=== PATIENT | male | born 1985 | race Caucasian/White ===

== ENCOUNTER 2019-10-03 21:48 | Emergency (ER) | payer MEDICAID, OTHER ==
[~2019-10-03] VITALS: Ht 182.9 cm; Wt 90.9 kg
[2019-10-03] MEDS ORDERED: KETOROLAC 60 MG/2 ML VIAL IM ONE (22:15)
--- NOTE | 2019-10-03 22:18 | ED GI ---
General Chief Complaint: Chest Wall Stated Complaint: RT SIDED PAIN Source of Information: Patient Exam Limitations: No Limitations History of Present Illness Date Seen by Provider: Oct 03, 2019 Time Seen by Provider: 22:05 Initial Comments Presents w onset of pain Right upper abdomen and Right chest just prior to arrival. Pain is sharp and comes and goes. NO nausea, vomiting or diarrhea. Denies constipation. Denies fever, chills, or loss of appetite. states Hx of similar "pain for the past 10yrs.....all over his body" that comes and goes. Allergies and Home Medications Allergies Coded Allergies: No Known Allergies (Verified Allergy, Unknown, 10/03/19) Patient Home Medication List Home Medication List Reviewed: Yes Review of Systems Review of Systems Constitutional: see HPI; No dizziness, No fever, No malaise, No weakness Respiratory: See HPI; Denies Cough, Denies Shortness of Air, Denies Stridor, Denies Wheezing Cardiovascular: See HPI, Chest Pain Gastrointestinal: See HPI; Denies Abdomen Distended; Abdominal Pain; Denies Constipated, Denies Diarrhea, Denies Difficulty Swallowing, Denies Nausea, Denies Poor Appetite, Denies Poor Fluid Intake, Denies Vomiting Genitourinary: Denies Frequency, Denies Flank Pain, Denies Hematuria, Denies Pain, Denies Urgency Musculoskeletal: No back pain, No joint pain, No muscle pain, No muscle stiffness, No muscle cramps Skin: No change in color, No rash Past Mtrmexh-Cxhfem-Rkgbbm Hx Past Med/Social Hx: Reviewed Nursing Past Med/Soc Hx Patient Social History Alcohol Use: Denies Use Recreational Drug Use: No Smoking Status: Never a Smoker 2nd Hand Smoke Exposure: No Recent Foreign Travel: No Contact w/Someone Who Travel: No Recent Hopitalizations: No Physical Abuse: No Sexual Abuse: No Mistreated: No Fear: No Seasonal Allergies Seasonal Allergies: No Past Medical History Surgeries: Yes Orthopedic Respiratory: No Cardiac: No Neurological: No Genitourinary: No Gastrointestinal: No Musculoskeletal: No Endocrine: No HEENT: No Cancer: No Psychosocial: No Integumentary: No Blood Disorders: No Physical Exam Vital Signs Vital Signs - First Documented 10/03/19 22:08 Temp 36.8 Pulse 91 Resp 20 B/P (MAP) 124/82 (96) O2 Delivery Room Air Capillary Refill : Height/Weight/BMI Height: '" Weight: lbs. oz. kg; BMI Method: General Appearance: WD/WN, no apparent distress Respiratory: chest non-tender, lungs clear, normal breath sounds, no respiratory distress, no accessory muscle use Cardiovascular: regular rate, rhythm, no edema, no gallop, no JVD, no murmur Gastrointestinal: normal bowel sounds, soft, no organomegaly, no pulsatile mass; No abnormal bowel sounds, No distended, No guarding, No rebound; tenderness (epigastric, RUQ and R flank); No hernia, No mass, No hepatomegaly, No spleenomegaly Extremities: normal range of motion, non-tender, normal inspection, no pedal edema, no calf tenderness Back: normal inspection, no CVA tenderness, no vertebral tenderness; No muscle spasm, No vertebral tenderness Skin: normal color, warm/dry Progress/Results/Core Measures Results/Orders Lab Results Laboratory Tests Test 10/03/19 22:20 Range/Units White Blood Count 8.9 4.3-11.0 10^3/uL Red Blood Count 5.10 4.35-5.85 10^6/uL Hemoglobin 15.1 13.3-17.7 G/DL Hematocrit 45 40-54 % Mean Corpuscular Volume 88 80-99 FL Mean Corpuscular Hemoglobin 30 25-34 PG Mean Corpuscular Hemoglobin Concent 34 32-36 G/DL Red Cell Distribution Width 13.2 10.0-14.5 % Platelet Count 257 130-400 10^3/uL Mean Platelet Volume 10.3 7.4-10.4 FL Neutrophils (%) (Auto) 58 42-75 % Lymphocytes (%) (Auto) 34 12-44 % Monocytes (%) (Auto) 5 0-12 % Eosinophils (%) (Auto) 2 0-10 % Basophils (%) (Auto) 1 0-10 % Neutrophils # (Auto) 5.2 1.8-7.8 X 10^3 Lymphocytes # (Auto) 3.0 1.0-4.0 X 10^3 Monocytes # (Auto) 0.4 0.0-1.0 X 10^3 Eosinophils # (Auto) 0.2 0.0-0.3 10^3/uL Basophils # (Auto) 0.1 0.0-0.1 10^3/uL My Orders Orders - ROVENSTINE,HERMINIA L DO Abdomen Flat & Upright/Decub (10/03/19 22:09) Cbc With Automated Diff (10/03/19 22:09) Comprehensive Metabolic Panel (10/03/19 22:09) Urinalysis (10/03/19 22:09) Chest 1 View Ap/Pa Only (10/03/19 22:09) Ketorolac Injection (Toradol Injection) (10/03/19 22:15) Medications Given in ED Current Medications Medications Dose Ordered Sig/Isra Route Start Time Stop Time Status Last Admin Dose Admin Ketorolac Tromethamine 60 mg ONCE ONCE IM 10/03/19 22:15 10/03/19 22:16 DC 10/03/19 22:19 60 MG Vital Signs/I&O 10/03/19 22:08 Temp 36.8 Pulse 91 Resp 20 B/P (MAP) 124/82 (96) O2 Delivery Room Air Departure Impression Primary Impression: Abdominal pain Qualified Codes: R10.10 - Upper abdominal pain, unspecified Additional Impression: Constipation Qualified Codes: K59.00 - Constipation, unspecified Disposition: 01 HOME, SELF-CARE Condition: Stable Departure-Patient Inst. Referrals: NO,LOCAL PHYSICIAN (PCP) Primary Care Physician [facility] [place] Patient Instructions: Acute Abdomen (Belly Pain), Adult (DC), Constipation, Adult (DC) Scripts Magnesium Citrate (Magnesium Citrate) 296 Ml Solution 296 ML PO ONCE, #1 EA Prov: HERMINIA STALLWORTH DO 10/03/19 HERMINIA STALLWORTH DO Oct 03, 2019 22:18 POS
[2019-10-03 22:45] LABS: BASOPHILS % (AUTO) 1 % (0-10); EOSINOPHILS % (AUTO) 2 % (0-10); HEMATOCRIT 45 % (40-54); HEMOGLOBIN 15.1 G/DL (13.3-17.7); LYMPHOCYTES % (AUTO) 34 % (12-44); MEAN CORPUSCULAR HEMOGLOBIN 30 PG (25-34); MEAN CORPUSCULAR HGB CONC 34 G/DL (32-36); MEAN CORPUSCULAR VOLUME 88 FL (80-99); MEAN PLATELET VOLUME 10.3 FL (7.4-10.4); MONOCYTES % (AUTO) 5 % (0-12); NEUTROPHILS % (AUTO) 58 % (42-75); PLATELET COUNT 257 10^3/uL (130-400); RED CELL DISTRIBUTION WIDTH 13.2 % (10.0-14.5); WHITE BLOOD COUNT 8.9 10^3/uL (4.3-11.0)
[2019-10-03 22:46] LABS: BASOPHILS # (AUTO) 0.1 10^3/uL (0.0-0.1); EOSINOPHILS # (AUTO) 0.2 10^3/uL (0.0-0.3); MONOCYTES # (AUTO) 0.4 X 10^3 (0.0-1.0); NEUTROPHILS # (AUTO) 5.2 X 10^3 (1.8-7.8)
[2019-10-03 22:48] LABS: BUN/CREATININE RATIO 16; CALCIUM 9.4 MG/DL (8.5-10.1); CARBON DIOXIDE 23 MMOL/L (21-32); CHLORIDE 104 MMOL/L (98-107); CREATININE SERUM 0.74 MG/DL (0.60-1.30); GFR ESTIMATED > 60; GLUCOSE 133 MG/DL (70-105); POTASSIUM 3.6 MMOL/L (3.6-5.0); SODIUM 140 MMOL/L (135-145)
[2019-10-03 22:49] LABS: ALANINE AMINOTRANSFERASE 51 U/L (0-55); ALBUMIN 4.3 GM/DL (3.2-4.5); ALKALINE PHOSPHATASE 91 U/L (40-136); BILIRUBIN,TOTAL 0.4 MG/DL (0.1-1.0); TOTAL PROTEIN 7.2 GM/DL (6.4-8.2)
[2019-10-03] MEDS ORDERED: MAGN296S50 PO (22:51)
[2019-10-03 22:57] VITALS: BP 124/82
--- NOTE | 2019-10-04 07:37 | Diagnostic Imaging Report ---
INDICATION: Pain FINDINGS: The heart, lungs, pleura and chest wall radiographically unremarkable. IMPRESSION: Negative Dictated by: Dictated on workstation # [id number]
--- NOTE | 2019-10-04 07:40 | Diagnostic Imaging Report ---
Indication: Pain. Findings: Bowel gas pattern unremarkable. No suspicious calcifications. No acute abnormality. Impression: Unremarkable abdominal radiographs. Dictated by: Dictated on workstation # [id number]
== END 2019-10-03 22:57 | disposition home or self-care (01) ==
LOC: ER FS 21:54
DX: K59.00 Constipation, unspecified (principal)
CPT/HCPCS: 36415; 71045; 74019; 80053; 85025

== ENCOUNTER 2019-12-06 14:30 | Emergency (ER) | payer BC, MEDICAID ==
[~2019-12-06] VITALS: Ht 182.8 cm; Wt 95.4 kg
[~2019-12-06 14:30] MED LIST: MAGN296S50 PO
--- NOTE | 2019-12-06 14:46 | ED Neck-Back Pain/Injury ---
General Chief Complaint: Head/Cervical Problems Stated Complaint: HEAD/NECK INJ Source of Information: Patient Exam Limitations: No Limitations History of Present Illness Date Seen by Provider: Dec 06, 2019 Time Seen by Provider: 14:44 Initial Comments To ER with head/neck injury. just delivered a baby, he was upstairs and taking some stuff out of the car. He stood up and hit the very top midline of his head on the car door frame. There was no loss of consciousness, he had a goose egg, some slight dizziness but states that he usually has dizziness because of some ongoing medical problems. His biggest concern is that he heard a popping sensation in the right side of his neck, he did fall to the ground but h as no paresthesias or numbness to any part of his body. Location: C-Spine Timing/Duration: 1/2 Hour Severity: Mild Pain/Injury Location: None Associated Symptoms: denies symptoms Allergies and Home Medications Allergies Coded Allergies: hydrocodone (Verified Allergy, Unknown, 12/06/19) burning Home Medications Magnesium Citrate 296 Ml Solution, 296 ML PO ONCE Prescribed by: HERMINIA STALLWORTH on 10/03/19 4235 Patient Home Medication List Home Medication List Reviewed: Yes Review of Systems Constitutional: see HPI EENTM: see HPI Respiratory: no symptoms reported Cardiovascular: no symptoms reported Genitourinary: no symptoms reported Musculoskeletal: see HPI Skin: no symptoms reported Psychiatric/Neurological: No Symptoms Reported Past Kothozv-Yulemk-Wtqkyg Hx Patient Social History 2nd Hand Smoke Exposure: No Recent Hopitalizations: No Seasonal Allergies Seasonal Allergies: No Past Medical History Surgeries: Yes Orthopedic Respiratory: No Cardiac: No Neurological: No Genitourinary: No Gastrointestinal: No Musculoskeletal: No Endocrine: No HEENT: No Cancer: No Psychosocial: No Integumentary: No Blood Disorders: No Physical Exam Vital Signs Vital Signs - First Documented 12/06/19 14:33 Pulse 92 Resp 17 B/P (MAP) 130/97 (108) Pulse Ox 97 O2 Delivery Room Air Capillary Refill : Height, Weight, BMI Height: '" Weight: lbs. oz. kg; 27.00 BMI Method: General Appearance: No Apparent Distress, WD/WN HEENT: PERRL/EOMI, TMs Normal Respiratory: No Accessory Muscle Use, No Respiratory Distress Gastrointestinal: Non Tender, Soft Extremity: Normal Capillary Refill, Normal Inspection Neurologic/Psychiatric: Alert, Oriented x3 Skin: Normal Color, Warm/Dry Progress/Results/Core Measures Results/Orders My Orders Orders - BRIGETTE HANSON APRN Ct Cervical Spine Wo (12/06/19 14:43) Vital Signs/I&O 12/06/19 14:33 Pulse 92 Resp 17 B/P (MAP) 130/97 (108) Pulse Ox 97 O2 Delivery Room Air Departure Impression Primary Impression: Minor head injury without loss of consciousness Qualified Codes: S09.90XA - Unspecified injury of head, initial encounter Additional Impression: Cervical strain Qualified Codes: S16.1XXA - Strain of muscle, fascia and tendon at neck level, initial encounter Disposition: HOME, SELF-CARE Condition: Stable Departure-Patient Inst. Decision time for Depature: 15:08 Referrals: NO,LOCAL PHYSICIAN (PCP/Family) Primary Care Physician Patient Instructions: Cervical Muscle Strain (DC) Add. Discharge Instructions: 1. Return to ER for any concerns 2. Follow-up with your doctor next week. Tylenol and Motrin for pain. 3. All discharge instructions reviewed with patient and/or family. Voiced understanding. BRIGETTE HANSON APRN Dec 06, 2019 14:46
--- NOTE | 2019-12-06 15:08 | Diagnostic Imaging Report ---
PROCEDURE: CT cervical spine without contrast. INDICATION: Head injury and neck pain. TECHNIQUE: Multiple contiguous axial images were obtained through the cervical spine without the use of intravenous contrast. Sagittal and coronal reformations were then performed. Auto Exposure Controls were utilized during the CT exam to meet ALARA standards for radiation dose reduction. FINDINGS: The cervical curvature and alignment are within normal limits. The vertebral body heights and disc spaces are maintained without evidence of fracture or subluxation. There is no paraspinous hematoma. There are prominent deep cervical lymph nodes, bilaterally. IMPRESSION: No CT evidence of acute cervical spinal abnormality. Dictated by: Dictated on workstation # [id number]
[2019-12-06 15:16] VITALS: BP 112/70
== END 2019-12-06 15:16 | disposition home or self-care (01) ==
LOC: EDUNIT# 14:30 → ER 14:31
DX: S09.90XA Unspecified injury of head, initial encounter (principal); S16.1XXA Strain of muscle, fascia and tendon at neck level, initial encounter; Z88.5 Allergy status to narcotic agent; W22.8XXA Striking against or struck by other objects, initial encounter
CPT/HCPCS: 72125

== ENCOUNTER 2021-07-18 22:38 | Emergency (ER) | payer BC, MEDICAID ==
[~2021-07-18 22:38] MED LIST changes: -MAGN296S50 PO; +MAGN296S71 PO
--- OUTSIDE RECORDS SUMMARY | 2021-07-18 22:43 | XMS REPORT | Clinical Summary ---
Author Author [facility] Organization [facility] Address Unknown Phone Unavailable Care Team Providers Care Ice Cream Vendor Name Role Phone No Pcp, Na PCP Unavailable Source Comments Some departments are not documenting in the electronic medical record. If you d o not see the information that you expected, contact Release of Information in [facility] Information Management department at [phone] for further assistan ce in locating additional records.[facility] Allergies Comments Active Allergy Reactions Severity Noted Date Hydrocodone NAUSEA ONLY Low 08/10/2018 Medications End Date Status Medication Sig Dispensed Refills Start Date Active acetaminophen (TYLENOL) Take two 90 tablet 0 325 mg tabletIndications: tablets by 8 pain mouth every 4 hours as needed. Active oxyCODONE (ROXICODONE, Take one 60 tablet 0 OXY-IR) 5 mg tablet tablet to two 8 tablets by mouth every 4 hours as needed Active docusate (COLACE) 100 mg Take one 180 capsule 3 1 capsule capsule by 8 mouth twice daily. Active ondansetron (ZOFRAN ODT) Dissolve one 30 tablet 0 4 mg rapid dissolve tablet by 8 tabletIndications: mouth every 6 prevention of hours as post-operative nausea and needed for vomiting Nausea or Vomiting. Place on tongue to dissolve. Active Problems Problem Noted Date Dislocation of carpometacarpal joint of right hand 1 10/18/2017 Hand fracture 08/10/2018 Medical History Medical History Date Comments Asthma sports enduced Social History Date Tobacco Use Types Packs/Day Years Used Quit: 2017 Former Smoker Cigarettes Smokeless Tobacco: Never Used Comments Alcohol Use Standard Drinks/Week Yes 7 (1 standard drink = 0.6 o z pure alcohol) Sex Assigned at Date Recorded Not on file Last Filed Vital Signs Reading Time Taken Comments Vital Sign 141/85 08/18/2018 11:31 AM CDT Blood Pressure 79 08/18/2018 11:31 AM CDT Pulse 36.8 C (98.2 F) 08/13/2018 10:29 AM CDT Temperature - - Respiratory Rate 98% 08/13/2018 3:01 PM CDT Oxygen Saturation - - Inhaled Oxygen Concentration 106.6 kg (235 lb) 09/13/2018 12:53 PM [facility] REP Weight 180.3 cm (5' 10.98") 09/13/2018 12:53 PM [facility] REP Height 32.79 09/13/2018 12:53 PM [facility] REP Body Mass Index Plan of Treatment Health Maintenance Due Date Last Done Comments HIV SCREENING 2002 DTAP/TDAP VACCINES (1 - 2005 Tdap) HEPATITIS C SCREENING 2005 PHYSICAL (COMPREHENSIVE) 2005 EXAM INFLUENZA VACCINE 05/18/2021 Results Not on filefrom Last 3 Months Advance Directives Patient [employer] Explanation Type Date Recorded Advance 08/13/2018 10:46 AM Directive/DPOA Date Inactivated Comments Code Status Date Activated 08/11/2018 5:17 PM Full Code 08/11/2018 12:55 AM Provider has discussed Code Status No, discussion no t w/Patient or Family? necessary based on Dx
== END 2021-07-18 22:45 | disposition left against medical advice (07) ==
LOC: EDUNIT# 22:38 → ER FS 22:39
DX: K08.89 Other specified disorders of teeth and supporting structures (principal)